=== PATIENT | male | born 1940 | race Caucasian/White ===

== ENCOUNTER → 2016-06-22 | Outpatient (CLI) | payer MEDICARE, OTHER ==
[~2016-06-22] MED LIST: DIGO250T72 PO; FISH1CAP59 PO; FLEC100T21 PO; INSU100C8 SQ; INSU100V12 SQ; LEVO75TA57 PO; LOSA50TA52 PO; METO-68 PO; ONDA4TAB7 PO; WARF4TAB33 PO; WARF4TAB6 PO
[2016-06-22 10:09] LABS: ALBUMIN 3.9 G/DL (3.5-5.0); ALBUMIN/GLOBULIN RATIO 1.2 RATIO (1.1-2.2); ALKALINE PHOSPHATASE 106 U/L (38-126); ALT (SGPT) 26 U/L (21-72); ANION GAP 7 MEQ/L (5-15); AST (SGOT) 20 U/L (17-59); BUN/CREATININE RATIO 18 RATIO (6-26); CALCIUM 9.6 MG/DL (8.4-10.2); CHLORIDE 107 MEQ/L (98-107); CO2 - CARBON DIOXIDE 27 MEQ/L (22-30); CREATININE 1.9 MG/DL (0.8-1.5); GLOMERULAR FILTRATION RATE 34; GLUCOSE 190 MG/DL (75-110); LDH 385 U/L (313-618); PHOSPHORUS 3.2 MG/DL (2.5-4.5); POTASSIUM 4.8 MEQ/L (3.6-5); SODIUM 141 MEQ/L (134-144); TOTAL PROTEIN 7.2 G/DL (6.3-8.2)
== END ==
LOC: LABN 09:52
PROVIDERS: ATTEND Internal Medicine Hematology & Oncology
DX: C64.1 Malignant neoplasm of right kidney, except renal pelvis (principal); C64.2 Malignant neoplasm of left kidney, except renal pelvis
CPT/HCPCS: 80053; 83615; 83735; 84100